=== PATIENT | male | born 1960 | race Caucasian/White ===

== ENCOUNTER 2020-11-21 05:01 | Emergency (ER) | payer MEDICAID, MEDICARE ==
[~2020-11-21] VITALS: Ht 165.1 cm; Wt 68.0 kg
[~2020-11-21 05:01] MED LIST: ASP81CT PO; ATEN1TAB45 PO; ESZO3TAB3 PO; HYDR-4226 PO; LAMO150T3 PO; LSRT50T PO; MULT-963 PO; QTP100T PO
--- NOTE | 2020-11-21 05:17 | ED General ---
General Stated Complaint: DEHYDRATION AND TROUBLE SLEEPING Source of Information: Patient (EXTREMELY DIFFICULT HISTORIAN, AND SPEECH IS EXTREMELY RAPID AND DIFFICULT TO UNDERSTAND AT TIMES AND EXTREMELY DIFFICULT TO KEEP ON SUBJECT. ) (ROSALBA BREWER DO) History of Present Illness Date Seen by Provider: Nov 21, 2020 Time Seen by Provider: 04:59 Initial Comments PT ARRIVES VIA EMS--WALKS INTO ER, LAUGHING AND TALKING RAPIDLY NON-STOP TO EMS STAFF PT REFUSED ALL TREATMENT BY EMS, INCLUDING REFUSED TO ALLOW THEM TO TAKE VITALS PT STATES "I'M EXHAUSTED AND I FEEL DEHYDRATED AND I EXTERT MYSELF AND I'M WORN OUT AND I HAVEN'S SLEPT IN 2 DAYS" PT ARRIVES WITH LARGE BACKPACK PLUS 2 OTHER LARGE BAGS, AND MULTIPLE COATS, ITEMS OF CLOTHING, AND WEARING VERY DARK MIRRORED SUNGLASSES--WEATHER IS BELOW FREEZING, SNOWING AND IS VERY DARK OUTSIDE. PT DENIES BEING HOMELESS--STATES HE LIVES IN [place], [place]. STATES HE RIDES HIS BIKE--DENIES WRECKING HIS BIKE PT UNABLE TO STAY HOW/WHY HE IS HERE IN [place] 'S ADDRESS IS DIFFERENT FROM PT'S, AND IS IN [place], [place] PT STATES HE IS BIPOLAR AND HE GOT ALL OF HIS MEDICATION STOLEN 2 WEEKS AGO AT A BAR THEN STATES IT WAS ONLY HIS LAMICTAL, LUNESTA AND ATENOLOL THAT WERE STOLEN. STATES THEY DIDN'T STEAL HIS SEROQUEL ALSO STATES HE IS ON LITHIUM--IS UNCLEAR IF HE HAS BEEN TAKING THIS OR NOT EMS PICKED PT UP ON [facility]--HE WAS WALKING. PT STATES HE TESTED + FOR COVID-19 A MONTH AGO, BUT HE DOESN'T BELIEVE IT BECAUSE HE DIDN'T HAVE ANY SYMPTOMS--WAS TESTED BECAUSE HIS WAS POSITIVE FOR COVID-19 PT DENIES ANY CURRENT COVID SYMPTOMS TODAY PCP: [facility] (ROSALBA BREWER DO) Allergies and Home Medications Allergies Coded Allergies: prednisone (Verified Allergy, Unknown, [facility], 08/02/16) Home Medications Aspirin 81 Mg Chew, 160 MG PO DAILY, (Reported) Eszopiclone 3 Mg Tablet, 3 MG PO HS, (Reported) Hydrocodone/Acetaminophen 1 Each Tablet, 1 EACH PO Q6H PRN for PAIN Prescribed by: MIROSLAVA CRANE on 08/02/162040 Losartan Potassium 50 Mg Tab, 50 MG PO DAILY, (Reported) Quetiapine Fumarate 100 Mg Tablet, 4 TAB PO HS, (Reported) Patient Home Medication List Home Medication List Reviewed: Yes (RATNA CLARKE) Review of Systems Review of Systems Constitutional: see HPI (EXTREMELY DIFFICULT TO GET PT TO ANSWER QUESTIONS, HE IS TALKING NON-STOP AND CANNOT KEEP ON SUBJECT. ) Respiratory: No short of breath Cardiovascular: No chest pain Psychiatric/Neurological: See HPI (ROSALBA BREWER DO) Past Atxlrkg-Ohcbqi-Decgiw Hx Past Med/Social Hx: Reviewed and Corrections made (ROSALBA BREWER DO) Patient Social History Alcohol Use: Denies Use Drug of Choice: DENIES Smoking Status: Never a Smoker Recent Hopitalizations: Yes (ER VISIT) (ROSALBA BREWER DO) Immunizations Up To Date Date of Influenza Vaccine: Jul 14, 2013 (ROSALBA BREWER DO) Past Medical History Surgeries: Yes (HERNIA REPAIR X 4 ) Abdominal, Adenoidectomy, Tonsillectomy, Vasectomy Respiratory: No Cardiac: Yes Hypertension Gastrointestinal: Yes (HERNIA REPAIR X 4) Abdominal Hernia, Ulcer Bipolar (ROSALBA BREWER DO) Physical Exam Vital Signs Vital Signs - First Documented 11/21/20 05:01 Temp 36.8 Pulse 112 Resp 20 B/P (MAP) 172/105 (127) Pulse Ox 97 (RATNA CLARKE) Vital Signs Capillary Refill : (ROSALBA BREWER DO) Height, Weight, BMI Height: 5'5" Weight: 130lbs. oz. 58.028981uc; BMI Method:Stated General Appearance: No Apparent Distress, WD/WN, Anxious, Other (WEARING LOTS OF JEWELRY--NECKLACES, RINGS. WEARING DARK SUNGLASSES. BEHAVIOR NOTED ABOVE) Respiratory: Normal Breath Sounds, No Accessory Muscle Use, No Respiratory Distress Cardiovascular: Regular Rate, Rhythm Gastrointestinal: Non Tender Extremity: No Pedal Edema Neurologic/Psychiatric: Alert, No Motor/Sensory Deficits, Other (ANXIOUS, APPEARS MANIC WITH EXTREMELY RAPID SPEECH--FREQUENTLY UNABLE TO UNDERSTAND WHAT HE IS SAYING DUE TO RAPID AND RUN-ON SPEECH, AND TANGIETIAL SPEECH. EXTREMELY DIFFICULT TO DETERMINE OREINTATION DUE TO THIS. BUT APPEARS GROSSLY ORIENTED TO PERSON, AND WHY HE IS HERE. ) (ROSALBA BREWER DO) Progress/Results/Core Measures Suspected Sepsis SIRS Temperature: Pulse: Respiratory Rate: Laboratory Tests 11/21/20 05:25: White Blood Count 8.5 Blood Pressure / Mean: Laboratory Tests 11/21/20 05:25: Creatinine 1.64H, Platelet Count 250, Total Bilirubin 0.8 (ROSALBA BREWER DO) Results/Orders Lab Results Laboratory Tests Test 11/21/20 05:15 11/21/20 05:25 Range/Units Urine Color YELLOW Urine Clarity CLEAR Urine pH 5.5 5-9 Urine Specific [place] 1.015 L 1.016-1.022 Urine Protein 1+ H NEGATIVE Urine Glucose (UA) NEGATIVE NEGATIVE Urine Ketones NEGATIVE NEGATIVE Urine Nitrite NEGATIVE NEGATIVE Urine Bilirubin NEGATIVE NEGATIVE Urine Urobilinogen 0.2 < = 1.0 MG/DL Urine Leukocyte Esterase NEGATIVE NEGATIVE Urine RBC (Auto) NEGATIVE NEGATIVE Urine RBC NONE /HPF Urine WBC NONE /HPF Urine Squamous Epithelial Cells RARE /HPF Urine Crystals NONE /LPF Urine Bacteria NEGATIVE /HPF Urine Casts PRESENT /LPF Urine Hyaline Casts 0-2 H /LPF Urine Mucus SMALL H /LPF Urine Culture Indicated NO Urine Opiates Screen NEGATIVE NEGATIVE Urine Oxycodone Screen NEGATIVE NEGATIVE Urine Methadone Screen NEGATIVE NEGATIVE Urine Propoxyphene Screen NEGATIVE NEGATIVE Urine Barbiturates Screen NEGATIVE NEGATIVE Ur Tricyclic Antidepressants Screen NEGATIVE NEGATIVE Urine Phencyclidine Screen NEGATIVE NEGATIVE Urine Amphetamines Screen NEGATIVE NEGATIVE Urine Methamphetamines Screen NEGATIVE NEGATIVE Urine Benzodiazepines Screen NEGATIVE NEGATIVE Urine Cocaine Screen NEGATIVE NEGATIVE Urine Cannabinoids Screen NEGATIVE NEGATIVE White Blood Count 8.5 4.3-11.0 10^3/uL Red Blood Count 4.60 4.30-5.52 10^6/uL Hemoglobin 13.9 13.3-17.7 g/dL Hematocrit 42 40-54 % Mean Corpuscular Volume 90 80-99 fL Mean Corpuscular Hemoglobin 30 25-34 pg Mean Corpuscular Hemoglobin Concent 33 32-36 g/dL Red Cell Distribution Width 13.0 10.0-14.5 % Platelet Count 250 130-400 10^3/uL Mean Platelet Volume 9.6 9.0-12.2 fL Immature Granulocyte % (Auto) 0 % Neutrophils (%) (Auto) 73 42-75 % Lymphocytes (%) (Auto) 16 12-44 % Monocytes (%) (Auto) 8 0-12 % Eosinophils (%) (Auto) 2 0-10 % Basophils (%) (Auto) 1 0-10 % Neutrophils # (Auto) 6.2 1.8-7.8 10^3/uL Lymphocytes # (Auto) 1.4 1.0-4.0 10^3/uL Monocytes # (Auto) 0.7 0.0-1.0 10^3/uL Eosinophils # (Auto) 0.2 0.0-0.3 10^3/uL Basophils # (Auto) 0.0 0.0-0.1 10^3/uL Immature Granulocyte # (Auto) 0.0 0.0-0.1 10^3/uL Sodium Level 139 135-145 MMOL/L Potassium Level 3.9 3.6-5.0 MMOL/L Chloride Level 105 98-107 MMOL/L Carbon Dioxide Level 22 21-32 MMOL/L Anion Gap 12 5-14 MMOL/L Blood Urea Nitrogen 30 H 7-18 MG/DL Creatinine 1.64 H 0.60-1.30 MG/DL Estimat Glomerular Filtration Rate 43 BUN/Creatinine Ratio 18 Glucose Level 102 70-105 MG/DL Calcium Level 9.1 8.5-10.1 MG/DL Corrected Calcium 8.9 8.5-10.1 MG/DL Magnesium Level 2.0 1.6-2.4 MG/DL Total Bilirubin 0.8 0.1-1.0 MG/DL Aspartate Amino Transf (AST/SGOT) 32 5-34 U/L Alanine Aminotransferase (ALT/SGPT) 35 0-55 U/L Alkaline Phosphatase 83 40-136 U/L Total Creatine Kinase 221 H 30-200 U/L Total Protein 7.2 6.4-8.2 GM/DL Albumin 4.2 3.2-4.5 GM/DL TSH [place] Testing 1.17 0.35-4.94 UIU/ML Serum Alcohol < 10 <10 MG/DL (RATNA CLARKE) My Orders Orders - RATNA CLARKE Quetiapine Immediate Release (Seroquel I (11/21/20 06:45) (RATNA CLARKE) Medications Given in ED Current Medications Medications Dose Ordered Sig/Breanna Route Start Time Stop Time Status Last Admin Dose Admin Atenolol 50 mg ONCE ONCE PO 11/21/20 06:00 11/21/20 06:01 DC 11/21/20 06:17 50 MG Lactated Ringer's 1,000 ml @ 0 mls/hr Q0M ONCE IV 11/21/20 05:30 11/21/20 05:31 DC 11/21/20 06:17 1,000 MLS/HR Quetiapine Fumarate 100 mg ONCE ONCE PO 11/21/20 06:45 11/21/20 06:46 DC 11/21/20 06:54 100 MG (RATNA CLARKE) Vital Signs/I&O 11/21/20 05:01 Temp 36.8 Pulse 112 Resp 20 B/P (MAP) 172/105 (127) Pulse Ox 97 (RATNA CLARKE) Vital Signs/I&O Capillary Refill : (ROSALBA BREWER DO) Progress Note : Progress Note GIVEN IV FLUIDS ON ARRIVAL, PT WANTS BLANKETS AND WANTS TO SLEEP PT DECLINES ANY MEDICATIONS TO HELP CALM HIM DOWN--STATES HE "DOESNT' WANT TO BE TOO SLEEPY BECAUSE HE HAS TO FIND A RIDE HOME AND HE CAN'T RIDE HIS BICYCLE IF HE IS TOO SLEEPY" PT IS AGREEABLE TO A DOSE OF ATENOLOL (ROSALBA BREWER DO) Progress Note #1: Time: 05:53 Progress Note Assumed care of the patient on shift change. I agree with the above documented history and physical exam. Patient says he wants to take a nap so we are going to give him about half an hour to rest and reexamine. We will offer him something to eat and attempt to restart his lithium. He does appear to be manic however he is oriented. After a nap we will see if he can get a hold of some family via phone. Added a CPK. Progress Note #2: Time: 06:42 Progress Note The patient has been unable to get any sleep so we offered him a dose of Seroquel and a couple hours for a nap. It is too better: To send him out on his bicycle at this time. We will probably also be more successful getting one of his friends to come give him a ride later in the morning when things have thawed. His and he are and she has no car he says. His children live far away. He says he was here in [place] singing and dancing at the club all weekend. Because he was away from home he has not been on his Seroquel for the past 2 days. He is out of his other medicines. We did offer his other medicines but he declined. He did however accept 100 mg of Seroquel. He says typically he has been prescribed 200 mg of Seroquel but he only takes 100 because he does not like feeling groggy in the morning. Progress Note #3: Time: 10:31 Progress Note The patient took his Seroquel and was able to have a couple hour long nap. He is no longer manic. He is no longer having pressured, rapid speech or thoughts. He is ready to go home. He is working on obtaining a ride home the [place] since he rode his bike over here. (RATNA CLARKE) Departure Impression Primary Impression: Manic behavior Disposition: 01 HOME, SELF-CARE Condition: Improved Departure-Patient Inst. Decision time for Depature: 10:50 (RATNA CLARKE) Referrals: NO,LOCAL PHYSICIAN (PCP/Family) Primary Care Physician Patient Instructions: Bipolar Disorder (DC) Add. Discharge Instructions: Go home and resume your medications. Call your primary care doctor and plan to follow-up in the next 1 to 2 weeks to get your other medications restarted. Return to the nearest ER if you are having worsening symptoms. ROSALBA BREWER DO Nov 21, 2020 05:17 RATNA CLARKE Nov 21, 2020 05:54
[2020-11-21 05:26] LABS: BILIRUBIN,URINE NEGATIVE (NEGATIVE); CLARITY,URINE CLEAR; COLOR,URINE YELLOW; GLUCOSE, URINE (UA) NEGATIVE (NEGATIVE); KETONES,URINE NEGATIVE (NEGATIVE); LEUKOCYTE ESTERASE ,URINE NEGATIVE (NEGATIVE); NITRITE,URINE NEGATIVE (NEGATIVE); PH,URINE 5.5 (5-9); PROTEIN,URINE 1+ (NEGATIVE)
[2020-11-21] MEDS ORDERED: LACTATED RINGERS 1,000 ML IV ONE (05:30)
[2020-11-21 05:32] LABS: BASOPHILS % (AUTO) 1 % (0-10); EOSINOPHILS # (AUTO) 0.2 10^3/uL (0.0-0.3); EOSINOPHILS % (AUTO) 2 % (0-10); HEMATOCRIT 42 % (40-54); HEMOGLOBIN 13.9 g/dL (13.3-17.7); LYMPHOCYTES # (AUTO) 1.4 10^3/uL (1.0-4.0); LYMPHOCYTES % (AUTO) 16 % (12-44); MEAN CORPUSCULAR HEMOGLOBIN 30 pg (25-34); MEAN CORPUSCULAR HGB CONC 33 g/dL (32-36); MEAN CORPUSCULAR VOLUME 90 fL (80-99); MEAN PLATELET VOLUME 9.6 fL (9.0-12.2); MONOCYTES # (AUTO) 0.7 10^3/uL (0.0-1.0); MONOCYTES % (AUTO) 8 % (0-12); NEUTROPHILS # (AUTO) 6.2 10^3/uL (1.8-7.8); NEUTROPHILS % (AUTO) 73 % (42-75); PLATELET COUNT 250 10^3/uL (130-400); WHITE BLOOD COUNT 8.5 10^3/uL (4.3-11.0)
[2020-11-21 05:33] LABS: BACTERIA,URINE NEGATIVE /HPF; HYALINE CASTS, URINE 0-2 /LPF; SQUAMOUS EPITHELIAL CELL,UR RARE /HPF
[2020-11-21 05:38] LABS: AMPHETAMINE SCREEN, URINE NEGATIVE (NEGATIVE); BARBITURATE SCREEN URINE NEGATIVE (NEGATIVE); BENZODIAZEPINES SCREEN URINE NEGATIVE (NEGATIVE); CANNABINOID SCREEN, URINE NEGATIVE (NEGATIVE); COCAINE SCREEN URINE NEGATIVE (NEGATIVE); METHADONE STAT NEGATIVE (NEGATIVE); METHAMPHETAMINE SCREEN URINE S NEGATIVE (NEGATIVE); OPIATE SCREEN URINE NEGATIVE (NEGATIVE); OXYCODONE STAT NEGATIVE (NEGATIVE); PROPOXYPHENE STAT NEGATIVE (NEGATIVE); TRICYCLIC ANTIDEPRESSANTS SCRE NEGATIVE (NEGATIVE)
[2020-11-21 05:42] LABS: ALBUMIN 4.2 GM/DL (3.2-4.5); CHLORIDE 105 MMOL/L (98-107); POTASSIUM 3.9 MMOL/L (3.6-5.0); SODIUM 139 MMOL/L (135-145)
[2020-11-21 05:43] LABS: CALCIUM 9.1 MG/DL (8.5-10.1)
[2020-11-21 05:44] LABS: GLUCOSE 102 MG/DL (70-105); TOTAL PROTEIN 7.2 GM/DL (6.4-8.2)
[2020-11-21 05:45] LABS: CARBON DIOXIDE 22 MMOL/L (21-32)
[2020-11-21 05:46] LABS: BILIRUBIN,TOTAL 0.8 MG/DL (0.1-1.0)
[2020-11-21 05:48] LABS: ALKALINE PHOSPHATASE 83 U/L (40-136); CREATININE SERUM 1.64 MG/DL (0.60-1.30); GFR ESTIMATED 43
[2020-11-21 05:49] LABS: BUN/CREATININE RATIO 18
[2020-11-21 05:51] LABS: ALANINE AMINOTRANSFERASE 35 U/L (0-55)
[2020-11-21] MEDS ORDERED: ATENOLOL 50 MG (TENORMIN) TAB PO ONE (06:00)
[2020-11-21 06:11] LABS: CREATINE KINASE 221 U/L (30-200); TSH (THYROID ANALYZER) 1.17 UIU/ML (0.35-4.94)
[2020-11-21] MEDS ORDERED: QUEtiapine 100 MG (SEROquel) TAB IMMEDIATE RELEASE PO ONE (06:45)
[2020-11-21 11:43] VITALS: BP 138/76
== END 2020-11-21 11:43 | disposition home or self-care (01) ==
LOC: EDUNIT# 05:01 → ER 05:02
DX: F31.9 Bipolar disorder, unspecified (principal); F41.9 Anxiety disorder, unspecified; I10 Essential (primary) hypertension; Z88.8 Allergy status to other drugs, medicaments and biological substances; Z79.82 Long term (current) use of aspirin
CPT/HCPCS: 80053; 80306; 81000; 82550; 83735; 84443; 85025; 93041; G0480; 36415; 80320